=== PATIENT | female | born 1955 | race Caucasian/White ===

== ENCOUNTER 2022-09-15 20:40 | Emergency (ER) | payer OTHER ==
[~2022-09-15] VITALS: Ht 167.6 cm; Wt 66.2 kg
[2022-09-15] MEDS ORDERED: PRILOSEC OTC20 MG (21:06)
[2022-09-15] MEDS ORDERED: SIMVASTATIN20 MG PO (21:07)
[2022-09-15] MEDS ORDERED: VERAPAMIL ER100 MG PO (21:08)
== END 2022-09-15 23:41 | disposition home or self-care (01) ==
LOC: ER 20:40
DX: M54.9 Dorsalgia, unspecified (principal)